=== PATIENT | female | born 1945 | race Caucasian/White ===

== ENCOUNTER 2017-01-29 09:07 | Inpatient (IN) | payer OTHER, MEDICAID ==
[~2017-01-29] VITALS: Ht 152.4 cm; Wt 68.9 kg
[~2017-01-29 09:07] MED LIST: IOHEXOL-350 100 ML BOTTLE ONE; SODIUM CHLORIDE 0.9% 10ML VIAL ONE
[2017-01-29] MEDS ORDERED: ONDANSETRON HCL 4MG/2ML VIAL IV STA (10:22)
[2017-01-29] MEDS ORDERED: SODIUM CHLORIDE 0.9% 1000ML BAG (SEPSIS BOLUS) IV ONE (10:30)
[2017-01-29] MEDS ORDERED: HYDRALAZINE 20MG/ML VIAL IV ONE (10:30)
[2017-01-29 10:47] LABS: BASOPHILS % 1.4 % (0.0-2.0); EOSINOPHILS % 5.3 % (0.0-5.0); HEMATOCRIT. 36.1 % (36.0-48.0); HEMOGLOBIN. 11.6 g/dL (12.0-16.0); LYMPHOCYTES % 23.2 % (20.0-50.0); MEAN CORPUSCULAR HEMOGLOBIN 26.3 pg (28.0-32.0); MEAN CORPUSCULAR VOLUME 81.7 fL (81.0-99.0); MEAN PLATELET VOLUME 9.4 fl (7.4-10.4); MONOCYTES % 7.3 % (2.0-8.0); NEUTROPHILS % 62.8 % (40.0-76.0); PLATELET 297 x1000/uL (130-400); RED BLOOD CELL COUNT 4.42 mill/uL (4.2-5.4); RED CELL DISTRIBUTION WIDTH 16.8 % (11.6-14.6)
[2017-01-29 11:05] LABS: CARBON DIOXIDE 28 mEq/L (21-32); CHLORIDE 104 mEq/L (98-107); ETHANOL BLOOD < 10 mg/dL; INR 0.9; PROTHROMBIN TIME 9.9 sec (9.4-11.6); TROPONIN I < 0.02 ng/mL (0.00-0.04)
[2017-01-29 11:07] LABS: D-DIMER 0.37 mg/L FEU (<0.50)
[2017-01-29 12:02] LABS: CLARITY URINE CLEAR (CLEAR); COLOR URINE YELLOW (YELLOW); GLUCOSE URINE NEGATIVE (NEGATIVE); KETONES URINE NEGATIVE (NEGATIVE); LEUKOCYTE ESTERASE URINE NEGATIVE (NEGATIVE); NITRITE URINE NEGATIVE (NEGATIVE); OCCULT BLOOD URINE TRACE (NEGATIVE); PROTEIN URINE NEGATIVE (NEGATIVE); SPECIFIC GRAVITY URINE 1.008 (1.005-1.030); UROBILINOGEN URINE 0.2 E.U./dL (0.2-1.0)
[2017-01-29 12:13] LABS: *AMPHETAMINES SCREEN URINE NEGATIVE (NEGATIVE); *BARBITURATES SCREEN URINE NEGATIVE (NEGATIVE); *BENZODIAZEPINES SCREEN URINE NEGATIVE (NEGATIVE); *COCAINE SCREEN URINE NEGATIVE (NEGATIVE); CANNABINOID URINE SCREEN NEGATIVE (NEGATIVE); METHADONE URINE SCREEN NEGATIVE (NEGATIVE); OPIATES URINE SCREEN NEGATIVE (NEGATIVE); PHENCYCLIDINE URINE SCREEN NEGATIVE (NEGATIVE)
[2017-01-29] MEDS ORDERED: DILTIAZEM HCL 30MG TABLET PO ONE (12:30)
[2017-01-29] MEDS ORDERED: DILTIAZEM HCL 5MG/ML 5ML VIAL IV ONE (12:30)
[2017-01-29] MEDS ORDERED: DILTIAZEM HCL 5MG/ML 5ML VIAL IV PRN (13:45)
[2017-01-29] MEDS ORDERED: DILTIAZEM HCL 60MG TABLET PO SCH (16:00)
[2017-01-29 16:07] VITALS: BP 142/79
[2017-01-29 16:08] VITALS: BP 142/79
[2017-01-29 17:00] VITALS: BP 142/72
[2017-01-29] MEDS: ENOXAPARIN 60MG/0.6ML SYR SUBCUT SCH (17:12)
[2017-01-29] MEDS ORDERED: GABA-290 PO ×2 (17:23)
[2017-01-29] MEDS ORDERED: ATOR10TA69 PO (17:29)
[2017-01-29] MEDS ORDERED: IBUP-2030 PO (17:29)
[2017-01-29] MEDS ORDERED: LOSA1TAB33 PO (17:29)
[2017-01-29] MEDS ORDERED: HYDR-4094 MT (17:29)
[2017-01-29] MEDS ORDERED: ALBU90AE IH (17:30)
[2017-01-29] MEDS ORDERED: INSHUMSS SUBCUT (17:31)
[2017-01-29] MEDS ORDERED: LANTUSUD SUBCUT ×2 (17:31→18:08)
[2017-01-29 18:00] VITALS: BP 151/72
[2017-01-29] MEDS ORDERED: ONDANSETRON HCL 4MG/2ML VIAL IV PRN (19:45)
[2017-01-29] MEDS ORDERED: ACETAMINOPHEN 325MG TABLET PO PRN (19:45)
[2017-01-29] MEDS ORDERED: DEXTROSE 50% WATER 50ML SYRINGE IV PRN (19:45)
[2017-01-29] MEDS ORDERED: INSULIN GLARGINE HUM REC ANLOG SUBCUT SCH ×2 (19:45→21:00)
[2017-01-29] MEDS ORDERED: [UNRECOGNIZED DRUG - OTHER] SUBCUT SCH (19:45)
[2017-01-29 20:00] VITALS: BP 141/83
[2017-01-29] MEDS: ATORVASTATIN CALCIUM 10MG TABLET PO SCH (20:38)
[2017-01-29] MEDS: DILTIAZEM HCL 60MG TABLET PO SCH (20:38)
[2017-01-29] MEDS: HYDROCODONE/ACETAMINOPHEN 5/325MG TABLET PO SCH (20:39)
[2017-01-29] MEDS: INSULIN LISPRO 100 UNITS/ML SUBCUT SCH (20:41)
[2017-01-29] MEDS: BLOOD SUGAR DIAGNOSTIC STRIP TEST SCH (20:41)
[2017-01-29] MEDS ORDERED: GABAPENTIN 300MG CAPSULE PO SCH (21:00)
[2017-01-29] MEDS ORDERED: [UNRECOGNIZED DRUG - OTHER] SUBCUT SCH (21:00)
[2017-01-29 22:00] VITALS: BP 124/85
[2017-01-29] MEDS: INSULIN DETEMIR UD 100 UNITS/ML SYR SUBCUT SCH (22:00)
[2017-01-30] VITALS (13 sets, daily range): BP systolic 116–157; BP diastolic 53–75
[2017-01-30] MEDS: ENOXAPARIN 60MG/0.6ML SYR SUBCUT SCH (05:43)
[2017-01-30] MEDS: DILTIAZEM HCL 60MG TABLET PO SCH ×3 (05:43→21:17)
[2017-01-30 06:06] LABS: EOSINOPHILS % 3.4 % (0.0-5.0); HEMATOCRIT. 31.3 % (36.0-48.0); HEMOGLOBIN. 10.3 g/dL (12.0-16.0); LYMPHOCYTES % 26.7 % (20.0-50.0); MEAN CORPUSCULAR HEMOGLOBIN 26.8 pg (28.0-32.0); MEAN CORPUSCULAR VOLUME 81.7 fL (81.0-99.0); MEAN PLATELET VOLUME 8.9 fl (7.4-10.4); MONOCYTES % 8.3 % (2.0-8.0); NEUTROPHILS % 60.6 % (40.0-76.0); PLATELET 287 x1000/uL (130-400); RED BLOOD CELL COUNT 3.83 mill/uL (4.2-5.4); RED CELL DISTRIBUTION WIDTH 17.3 % (11.6-14.6)
[2017-01-30 07:11] LABS: CARBON DIOXIDE 26 mEq/L (21-32); CHLORIDE 107 mEq/L (98-107); CREATINE KINASE 86 IU/L (26-192); TROPONIN I < 0.02 ng/mL (0.00-0.04)
[2017-01-30] MEDS: INSULIN LISPRO 100 UNITS/ML SUBCUT SCH ×4 (07:20→21:34)
[2017-01-30] MEDS: BLOOD SUGAR DIAGNOSTIC STRIP TEST SCH ×4 (07:23→21:26)
[2017-01-30] MEDS ORDERED: GABAPENTIN 300MG CAPSULE PO SCH (09:00)
[2017-01-30] MEDS ORDERED: MEDICATION NOT ON FORMULARY EA (Gabapentin 1 TAB) PO SCH (09:00)
[2017-01-30] MEDS: HYDROCODONE/ACETAMINOPHEN 5/325MG TABLET PO SCH ×2 (09:26→21:18)
[2017-01-30] MEDS: INSULIN DETEMIR UD 100 UNITS/ML SYR SUBCUT SCH ×2 (10:31→21:26)
[2017-01-30] MEDS ORDERED: INSULIN LISPRO 100 UNITS/ML SUBCUT SCH (12:00)
[2017-01-30] MEDS ORDERED: INSULIN LISPRO 12 UNIT SUBCUT SCH (12:00)
[2017-01-30] MEDS: GABAPENTIN 400MG CAPSULE PO SCH ×2 (16:31→21:18)
[2017-01-30 17:44] LABS: T4 FREE 1.19 ng/dL (0.76-1.46)
[2017-01-30 18:03] LABS: FOLIC ACID (FOLATE) SERUM 6.3 ng/mL (>5.38)
[2017-01-30] MEDS: ATORVASTATIN CALCIUM 10MG TABLET PO SCH (21:17)
[2017-01-31] VITALS (9 sets, daily range): BP systolic 120–156; BP diastolic 41–72
[2017-01-31] MEDS: DILTIAZEM HCL 60MG TABLET PO SCH ×3 (04:21→22:00)
[2017-01-31] MEDS: BLOOD SUGAR DIAGNOSTIC STRIP TEST SCH ×4 (05:07→21:00)
[2017-01-31] MEDS: GABAPENTIN 400MG CAPSULE PO SCH ×3 (05:59→22:29)
[2017-01-31] MEDS ORDERED: BISACODYL 10MG SUPP PR SCH (07:15)
[2017-01-31] MEDS: INSULIN LISPRO 100 UNITS/ML SUBCUT SCH ×4 (08:57→21:21)
[2017-01-31] MEDS: ENOXAPARIN 40MG/0.4ML SYR SUBCUT SCH (08:58)
[2017-01-31] MEDS: DOCUSATE SODIUM 100MG CAPSULE PO SCH ×2 (08:58→17:29)
[2017-01-31] MEDS: HYDROCODONE/ACETAMINOPHEN 5/325MG TABLET PO SCH ×2 (09:00→21:19)
[2017-01-31] MEDS: INSULIN DETEMIR UD 100 UNITS/ML SYR SUBCUT SCH ×3 (09:03→22:00)
[2017-01-31] MEDS: ATORVASTATIN CALCIUM 10MG TABLET PO SCH (21:18)
[2017-02-01] VITALS: BP 134/64
[2017-02-01 04:00] VITALS: BP 124/41
[2017-02-01] MEDS: DILTIAZEM HCL 60MG TABLET PO SCH ×2 (06:00→13:07)
[2017-02-01] MEDS: BLOOD SUGAR DIAGNOSTIC STRIP TEST SCH ×3 (06:15→18:18)
[2017-02-01] MEDS: GABAPENTIN 400MG CAPSULE PO SCH ×2 (06:17→13:07)
[2017-02-01 07:56] LABS: HEMATOCRIT. 34.3 % (36.0-48.0); HEMOGLOBIN. 11.2 g/dL (12.0-16.0); LYMPHOCYTES % 21.1 % (20.0-50.0); MEAN CORPUSCULAR HEMOGLOBIN 26.6 pg (28.0-32.0); MEAN CORPUSCULAR VOLUME 81.5 fL (81.0-99.0); MEAN PLATELET VOLUME 8.9 fl (7.4-10.4); MONOCYTES % 7.1 % (2.0-8.0); NEUTROPHILS % 63.8 % (40.0-76.0); PLATELET 292 x1000/uL (130-400); RED BLOOD CELL COUNT 4.21 mill/uL (4.2-5.4); RED CELL DISTRIBUTION WIDTH 16.9 % (11.6-14.6)
[2017-02-01 08:00] VITALS: BP 150/70
[2017-02-01] MEDS: ENOXAPARIN 40MG/0.4ML SYR SUBCUT SCH (08:13)
[2017-02-01] MEDS: INSULIN LISPRO 100 UNITS/ML SUBCUT SCH ×3 (08:13→18:26)
[2017-02-01] MEDS: DOCUSATE SODIUM 100MG CAPSULE PO SCH ×2 (08:13→17:00)
[2017-02-01 08:52] LABS: CARBON DIOXIDE 30 mEq/L (21-32); CHLORIDE 103 mEq/L (98-107)
[2017-02-01] MEDS: HYDROCODONE/ACETAMINOPHEN 5/325MG TABLET PO SCH (09:00)
[2017-02-01] MEDS: INSULIN DETEMIR UD 100 UNITS/ML SYR SUBCUT SCH (11:09)
[2017-02-01 12:00] VITALS: BP 142/54
[2017-02-01 16:00] VITALS: BP 100/60
[2017-02-01 19:03] VITALS: BP 100/60
== END 2017-02-01 19:36 | disposition home health service (06) | DRG 74 ==
LOC: ER 09:40 → EDBEDREQ 10:30 → EDBEDREQSVC 11:48 → EDBEDREQ 11:48 → ENRESERV 13:15 → 3WST 13:47 → EDBEDREQ 13:49 → 7WST 01-31 22:09
PROVIDERS: ADMIT Internal Medicine; ATTEND Internal Medicine
DX: G90.8 Other disorders of autonomic nervous system (principal); I48.92 Unspecified atrial flutter; I11.9 Hypertensive heart disease without heart failure; I47.1 Supraventricular tachycardia; I69.351 Hemiplegia and hemiparesis following cerebral infarction affecting right dominant side; D64.9 Anemia, unspecified; E11.42 Type 2 diabetes mellitus with diabetic polyneuropathy; I48.0 Paroxysmal atrial fibrillation; M48.02 Spinal stenosis, cervical region; E78.00 Pure hypercholesterolemia, unspecified; H40.9 Unspecified glaucoma; H54.62 Unqualified visual loss, left eye, normal vision right eye; K59.00 Constipation, unspecified; M19.90 Unspecified osteoarthritis, unspecified site; M48.04 Spinal stenosis, thoracic region; Z79.4 Long term (current) use of insulin; Z79.899 Other long term (current) drug therapy; Z82.49 Family history of ischemic heart disease and other diseases of the circulatory system; Z83.3 Family history of diabetes mellitus; Z90.710 Acquired absence of both cervix and uterus; M54.10 Radiculopathy, site unspecified
CPT/HCPCS: 36415; 70450; 70551; 71010; 71275; 72141; 72148; 80048; 80053; 80305; 81001; 82550; 82607; 82746; 82962; 83036; 83605; 83735; 83880; 84439; 84443; 84481; 84484; 85025; 85379; 85610; 87040; 87086; 93005; 93306; 93970; 96361; 96365; 96366; 96367; 96375; 96376; 97162; 97166; 97530; 97535; 99285; A4216; G0482; J0360; J1650; J1815; J2405; J3490; J7030; Q9967

== ENCOUNTER 2017-02-02 16:01 | Inpatient (IN) | payer OTHER, MEDICAID ==
[~2017-02-02] VITALS: Ht 152.4 cm; Wt 65.5 kg
[~2017-02-02 16:01] MED LIST changes: +ALBU90AE IH; +ATOR10TA69 PO; +GABA-290 PO; +HYDR-4094 MT; +IBUP-2030 PO; +INSHUMSS SUBCUT; -IOHEXOL-350 100 ML BOTTLE ONE; +LANTUSUD SUBCUT; +LOSA1TAB33 PO; -SODIUM CHLORIDE 0.9% 10ML VIAL ONE
[2017-02-02] MEDS ORDERED: SODIUM CHLORIDE 0.9% 1,000 ML IV ONE (18:48)
[2017-02-02 19:13] LABS: BASOPHILS % 1.5 % (0.0-2.0); HEMATOCRIT. 35.8 % (36.0-48.0); HEMOGLOBIN. 11.6 g/dL (12.0-16.0); LYMPHOCYTES % 34.7 % (20.0-50.0); MEAN CORPUSCULAR HEMOGLOBIN 26.5 pg (28.0-32.0); MEAN CORPUSCULAR VOLUME 81.8 fL (81.0-99.0); MEAN PLATELET VOLUME 8.5 fl (7.4-10.4); NEUTROPHILS % 49.8 % (40.0-76.0); PLATELET 349 x1000/uL (130-400); RED BLOOD CELL COUNT 4.38 mill/uL (4.2-5.4); RED CELL DISTRIBUTION WIDTH 17.2 % (11.6-14.6)
[2017-02-02 19:23] LABS: D-DIMER 0.46 mg/L FEU (<0.50); INR 0.9; PROTHROMBIN TIME 9.9 sec (9.4-11.6)
[2017-02-02 19:24] LABS: CHLORIDE 104 mEq/L (98-107)
[2017-02-02 19:27] LABS: CARBON DIOXIDE 28 mEq/L (21-32)
[2017-02-02 19:32] LABS: TROPONIN I < 0.02 ng/mL (0.00-0.04)
[2017-02-02 20:50] LABS: CLARITY URINE CLEAR (CLEAR); COLOR URINE YELLOW (YELLOW); GLUCOSE URINE NEGATIVE (NEGATIVE); KETONES URINE NEGATIVE (NEGATIVE); LEUKOCYTE ESTERASE URINE NEGATIVE (NEGATIVE); NITRITE URINE NEGATIVE (NEGATIVE); OCCULT BLOOD URINE NEGATIVE (NEGATIVE); PH URINE 7.5 (4.5-8.0); PROTEIN URINE NEGATIVE (NEGATIVE); SPECIFIC GRAVITY URINE 1.008 (1.005-1.030); UROBILINOGEN URINE 0.2 E.U./dL (0.2-1.0)
[2017-02-03] MEDS ORDERED: DEXAMETHASONE 10 MG/ML VIAL IV SCH
[2017-02-03 01:30] VITALS: BP 131/50
[2017-02-03] MEDS ORDERED: IPRATROPIUM/ALBUTEROL 0.5-3(2.5)MG/3ML NEB INH PRN (02:30)
[2017-02-03] MEDS ORDERED: GUAIFENESIN 200MG/10ML SUGAR FREE UDC PO PRN (02:30)
[2017-02-03] MEDS ORDERED: ONDANSETRON HCL 4MG/2ML VIAL IV PRN (02:30)
[2017-02-03] MEDS ORDERED: ACETAMINOPHEN 325MG TABLET PO PRN (02:30)
[2017-02-03] MEDS ORDERED: DEXTROSE 50% WATER 50ML SYRINGE IV PRN (02:30)
[2017-02-03] MEDS ORDERED: DIPHENHYDRAMINE 50MG/ML VIAL IV PRN (02:30)
[2017-02-03] MEDS ORDERED: MAGNESIUM/ALUMINUM HYDROXIDE/SIMETHICONE 30ML UDC PO PRN (02:30)
[2017-02-03] MEDS ORDERED: BISACODYL 10MG SUPP PR PRN (02:45)
[2017-02-03 04:00] VITALS: BP_SYST 131; BP_SYST 139; BP_DIAS 102; BP_DIAS 70
[2017-02-03] MEDS ORDERED: INSULIN DETEMIR UD 100 UNITS/ML SYR SUBCUT NR (04:30)
[2017-02-03] MEDS: BLOOD SUGAR DIAGNOSTIC STRIP TEST SCH ×4 (05:48→21:00)
[2017-02-03] MEDS: GABAPENTIN 400MG CAPSULE PO SCH ×3 (05:51→22:15)
[2017-02-03] MEDS: OMEPRAZOLE 20MG CAPSULE EXTENDED RELEASE PO SCH ×2 (05:51→15:23)
[2017-02-03] MEDS: DILTIAZEM HCL 60MG TABLET PO SCH ×3 (05:51→22:15)
[2017-02-03] MEDS: HYDROCODONE/ACETAMINOPHEN 5/325MG TABLET PO PRN (05:52)
[2017-02-03] MEDS: INSULIN LISPRO 100 UNITS/ML SUBCUT SCH ×4 (06:04→22:22)
[2017-02-03] MEDS: SODIUM CHLORIDE 0.9% INJ 3ML FLUSH IVF SCH ×3 (06:06→22:23)
[2017-02-03] MEDS: DOCUSATE SODIUM 100MG CAPSULE PO SCH ×2 (08:37→18:33)
[2017-02-03] MEDS: DEXAMETHASONE 10 MG/ML VIAL IV SCH ×3 (08:37→18:33)
[2017-02-03 09:00] VITALS: BP 156/62
[2017-02-03] MEDS ORDERED: INFLUENZA VIRUS VACCINE 0.5ML SYR IM ONE (10:00)
[2017-02-03] MEDS ORDERED: INSULIN DETEMIR UD 100 UNITS/ML SYR SUBCUT SCH ×3 (10:00→22:00)
[2017-02-03 13:20] VITALS: BP 147/60
[2017-02-03 17:09] VITALS: BP 164/68
[2017-02-03 20:00] VITALS: BP 133/53
[2017-02-03] MEDS: ZOLPIDEM TARTRATE 5MG TABLET PO PRN (22:15)
[2017-02-03] MEDS: INSULIN DETEMIR UD 100 UNITS/ML SYR SUBCUT SCH (22:22)
[2017-02-04] VITALS (41 sets, daily range): BP systolic 99–166; BP diastolic 48–82
[2017-02-04] MEDS: DEXAMETHASONE 10 MG/ML VIAL IV SCH ×4 (01:24→17:42)
[2017-02-04] MEDS: OMEPRAZOLE 20MG CAPSULE EXTENDED RELEASE PO SCH ×2 (05:32→16:30)
[2017-02-04] MEDS: DILTIAZEM HCL 60MG TABLET PO SCH ×3 (05:32→21:06)
[2017-02-04] MEDS: GABAPENTIN 400MG CAPSULE PO SCH ×3 (05:32→21:05)
[2017-02-04] MEDS: BLOOD SUGAR DIAGNOSTIC STRIP TEST SCH ×4 (05:38→21:08)
[2017-02-04] MEDS: SODIUM CHLORIDE 0.9% INJ 3ML FLUSH IVF SCH ×3 (05:39→21:08)
[2017-02-04] MEDS: INSULIN LISPRO 100 UNITS/ML SUBCUT SCH ×4 (05:58→21:08)
[2017-02-04] MEDS ORDERED: GELATIN SPONGE,ABSORBABLE SZ 100 ONE (06:57)
[2017-02-04] MEDS ORDERED: THROMBIN (BOVINE) 5000 UNITS/VIAL TOP ONE (06:58)
[2017-02-04] MEDS ORDERED: NORMAL SALINE 0.9% 10 ML SYR ONE (06:58)
[2017-02-04] MEDS ORDERED: LIDOCAINE HCL 1%/EPI 1:200,000 30 ML VIAL ONE (06:58)
[2017-02-04] MEDS ORDERED: BACITRACIN ZINC 15GM TUBE TOP ONE (06:58)
[2017-02-04] MEDS ORDERED: BACITRACIN 50,000 UNITS/VIAL ONE (06:58)
[2017-02-04] MEDS ORDERED: NICARDIPINE 50 MG in SODIUM CHLORIDE 0.9% 230 ML IV PRN (07:15)
[2017-02-04] MEDS ORDERED: FENTANYL CITRATE/PF 50MCG/ML 2ML VIAL ONE ×3 (07:21→14:27)
[2017-02-04] MEDS ORDERED: HYDROMORPHONE HCL/PF 2MG/ML (OR) ONE (07:21)
[2017-02-04] MEDS ORDERED: MIDAZOLAM HCL 2 MG/2 ML VIAL ONE (07:21)
[2017-02-04] MEDS ORDERED: PHENYLEPHRINE HCL 10 MG/ML 1ML (IV VIAL) IV ONE (09:26)
[2017-02-04] MEDS ORDERED: PROPOFOL 200MG/20ML VIAL IV ONE ×4 (09:26→13:23)
[2017-02-04] MEDS ORDERED: NEOSTIGMINE METHYLSULFATE 1MG/ML 10 ML VIAL ONE (09:26)
[2017-02-04] MEDS ORDERED: ROCURONIUM BROMIDE 10MG/ML VIAL 5ML IV ONE ×2 (09:26→12:32)
[2017-02-04] MEDS ORDERED: ESMOLOL HCL 10MG/ML 10ML VIAL IV ONE ×3 (09:26→12:32)
[2017-02-04] MEDS ORDERED: NICARDIPINE 100 MG in SODIUM CHLORIDE 0.9% 60 ML IV PRN (09:45)
[2017-02-04] MEDS ORDERED: HYDROMORPHONE PCA 10MG/50ML IV PRN (10:15)
[2017-02-04] MEDS ORDERED: ONDANSETRON INJ IV PRN (10:15)
[2017-02-04] MEDS ORDERED: NALOXONE INJ IV PRN (10:15)
[2017-02-04] MEDS ORDERED: DIPHENHYDRAMINE INJ IV PRN (10:15)
[2017-02-04] MEDS: DEXT 5%/LACTATED RINGERS 1,000 ML IV SCH (10:33)
[2017-02-04] MEDS: DOCUSATE SODIUM 100MG CAPSULE PO SCH ×2 (10:42→17:00)
[2017-02-04] MEDS: INSULIN DETEMIR UD 100 UNITS/ML SYR SUBCUT SCH ×2 (11:27→21:07)
[2017-02-04] MEDS: CEFAZOLIN 1000MG PREMIX 50 ML IV SCH ×2 (12:07→20:17)
[2017-02-04] MEDS ORDERED: CEFAZOLIN SODIUM 1000MG/VIAL ONE (12:32)
[2017-02-04] MEDS ORDERED: LIDOCAINE HCL 1% 20ML VIAL (Pyxis) INJ ONE (12:32)
[2017-02-04] MEDS ORDERED: ONDANSETRON HCL 4MG/2ML VIAL ONE (12:34)
[2017-02-04] MEDS ORDERED: CEFAZOLIN SODIUM 1000MG/VIAL IV SCH (14:00)
[2017-02-04] MEDS: ZOLPIDEM TARTRATE 5MG TABLET PO PRN (21:06)
[2017-02-04] MEDS ORDERED: DILTIAZEM HCL 30MG TABLET PO NR (23:15)
[2017-02-05] VITALS (36 sets, daily range): BP systolic 96–150; BP diastolic 40–71
[2017-02-05] MEDS: DEXAMETHASONE 10 MG/ML VIAL IV SCH ×3 (00:58→12:58)
[2017-02-05] MEDS: DEXT 5%/LACTATED RINGERS 1,000 ML IV SCH ×2 (02:19→03:56)
[2017-02-05] MEDS: CEFAZOLIN 1000MG PREMIX 50 ML IV SCH (04:09)
[2017-02-05] MEDS: GABAPENTIN 400MG CAPSULE PO SCH ×3 (06:07→21:10)
[2017-02-05] MEDS: OMEPRAZOLE 20MG CAPSULE EXTENDED RELEASE PO SCH ×2 (06:07→16:42)
[2017-02-05] MEDS: DILTIAZEM HCL 90MG TABLET PO SCH ×3 (06:07→21:12)
[2017-02-05] MEDS: SODIUM CHLORIDE 0.9% INJ 3ML FLUSH IVF SCH ×3 (06:08→21:10)
[2017-02-05 06:19] LABS: HEMATOCRIT. 28.6 % (36.0-48.0); HEMOGLOBIN. 9.1 g/dL (12.0-16.0); MEAN CORPUSCULAR HEMOGLOBIN 26.3 pg (28.0-32.0); MEAN CORPUSCULAR VOLUME 82.4 fL (81.0-99.0); MEAN PLATELET VOLUME 9.1 fl (7.4-10.4); PLATELET 309 x1000/uL (130-400); RED BLOOD CELL COUNT 3.48 mill/uL (4.2-5.4); RED CELL DISTRIBUTION WIDTH 17.5 % (11.6-14.6)
[2017-02-05] MEDS: INSULIN LISPRO 100 UNITS/ML SUBCUT SCH ×4 (06:19→21:43)
[2017-02-05 06:27] LABS: CARBON DIOXIDE 28 mEq/L (21-32); CHLORIDE 106 mEq/L (98-107)
[2017-02-05] MEDS: BLOOD SUGAR DIAGNOSTIC STRIP TEST SCH ×4 (06:30→21:34)
[2017-02-05 07:58] LABS: PLATELET ESTIMATE NORMAL
[2017-02-05] MEDS: DOCUSATE SODIUM 100MG CAPSULE PO SCH ×2 (09:24→18:31)
[2017-02-05] MEDS: INSULIN DETEMIR UD 100 UNITS/ML SYR SUBCUT SCH ×2 (10:35→21:44)
[2017-02-05] MEDS: LACTULOSE 20G/30ML UDC PO SCH ×2 (18:33→21:10)
[2017-02-05] MEDS ORDERED: POLYETHYLENE GLYCOL 3350 (17GM) 1 DOSE PACK PO SCH (21:00)
[2017-02-05] MEDS ORDERED: TEMAZEPAM 15MG CAPSULE PO PRN (21:00)
[2017-02-05] MEDS: DEXAMETHASONE 4MG/ML 1ML VIAL IV SCH (21:12)
[2017-02-05] MEDS: MORPHINE SULFATE 2 MG/ML CPJ (NOT FOR IM USE) IV PRN (22:13)
[2017-02-06] VITALS (7 sets, daily range): BP systolic 118–154; BP diastolic 51–60
[2017-02-06] MEDS: SODIUM CHLORIDE 0.9% INJ 3ML FLUSH IVF SCH ×2 (06:26→13:04)
[2017-02-06] MEDS: GABAPENTIN 400MG CAPSULE PO SCH ×2 (06:26→13:03)
[2017-02-06] MEDS: DEXAMETHASONE 4MG/ML 1ML VIAL IV SCH ×2 (06:26→13:04)
[2017-02-06] MEDS: OMEPRAZOLE 20MG CAPSULE EXTENDED RELEASE PO SCH ×2 (06:26→17:22)
[2017-02-06] MEDS: DILTIAZEM HCL 90MG TABLET PO SCH ×2 (06:27→13:04)
[2017-02-06] MEDS: BLOOD SUGAR DIAGNOSTIC STRIP TEST SCH ×3 (06:27→16:57)
[2017-02-06] MEDS: MORPHINE SULFATE 2 MG/ML CPJ (NOT FOR IM USE) IV PRN ×2 (06:41→11:33)
[2017-02-06] MEDS: INSULIN LISPRO 100 UNITS/ML SUBCUT SCH ×3 (07:41→17:26)
[2017-02-06] MEDS ORDERED: DOCUSATE SODIUM 100MG CAPSULE PO SCH (09:00)
[2017-02-06] MEDS: DOCUSATE SODIUM 100MG CAPSULE PO SCH ×2 (09:49→16:56)
[2017-02-06] MEDS: LACTULOSE 20G/30ML UDC PO SCH ×3 (09:49→16:56)
[2017-02-06] MEDS: INSULIN DETEMIR UD 100 UNITS/ML SYR SUBCUT SCH (09:50)
[2017-02-06] MEDS: DEXT 5%/LACTATED RINGERS 1,000 ML IV SCH (11:31)
[2017-02-06] MEDS: HYDROCODONE/ACETAMINOPHEN 5/325MG TABLET PO PRN (17:46)
[2017-02-06] MEDS ORDERED: INSULIN DETEMIR UD 100 UNITS/ML SYR SUBCUT SCH (22:00)
[2017-02-07] MEDS ORDERED: INSULIN DETEMIR UD 100 UNITS/ML SYR SUBCUT SCH (10:00)
== END 2017-02-06 20:00 | DRG 471 ==
LOC: ER 16:08 → 5WST 20:19 → EDBEDREQ 20:24 → EDBEDREQTM 20:26 → EDBEDREQSVC 20:26 → ENRESERV 23:36 → MICUSO 02-04 09:31 → MICUNO 02-04 10:00 → 6EST 02-05 17:00
PROVIDERS: ADMIT Internal Medicine; ATTEND Internal Medicine
PROC: 0RB30ZZ Excision of Cervical Vertebral Disc, Open Approach (ICD-10-PCS; 2017-02-04)
PROC: 0RG10Z0 (ICD-10-PCS; principal; 2017-02-04 07:00)
DX: M48.02 Spinal stenosis, cervical region (principal); G82.50 Quadriplegia, unspecified; M50.023 Cervical disc disorder at C6-C7 level with myelopathy; E11.42 Type 2 diabetes mellitus with diabetic polyneuropathy; E11.65 Type 2 diabetes mellitus with hyperglycemia; R13.10 Dysphagia, unspecified; D64.9 Anemia, unspecified; I48.0 Paroxysmal atrial fibrillation; S14.109A Unspecified injury at unspecified level of cervical spinal cord, initial encounter; D72.829 Elevated white blood cell count, unspecified; E78.00 Pure hypercholesterolemia, unspecified; H40.9 Unspecified glaucoma; H54.62 Unqualified visual loss, left eye, normal vision right eye; I10 Essential (primary) hypertension; M48.061 Spinal stenosis, lumbar region without neurogenic claudication; Z60.2 Problems related to living alone; M19.90 Unspecified osteoarthritis, unspecified site; Z86.73 Personal history of transient ischemic attack (TIA), and cerebral infarction without residual deficits; Z90.710 Acquired absence of both cervix and uterus; Z83.3 Family history of diabetes mellitus; Z79.899 Other long term (current) drug therapy; Z99.3 Dependence on wheelchair; Z79.4 Long term (current) use of insulin
CPT/HCPCS: 36415; 70450; 71010; 72040; 72141; 80048; 80053; 81003; 82962; 83605; 83880; 84484; 85025; 85379; 85610; 86850; 86900; 87040; 87086; 87804; 88304; 88311; 90686; 92610; 93005; 95925; 95926; 95928; 95929; 96360; 96361; 97112; 97162; 97167; 97530; 99285; A4216; C1713; J0690; J1100; J1170; J1200; J1815; J2250; J2270; J2370; J2405; J2704; J2710; J3010; J3490; J7030; J7121; L0172